=== PATIENT | female | born 1980 | race Caucasian/White ===

== ENCOUNTER 2016-11-23 09:22 | Inpatient (IN) | payer MEDICAID, OTHER ==
[2016-11-23] MEDS ORDERED: IOPAMIDOL 370 (76%) 100 ML VIAL IV ONE (09:23)
[2016-11-23] MEDS ORDERED: LORAZEPAM 2 MG/ML 1ML SDV ONE (09:57)
[2016-11-23 09:59] LABS: ABSOLUTE NEUTROPHIL COUNT 6.9 K/mm3 (1.8-7.7); BASO % 0.3 % (0.2-1.0); HEMOGLOBIN 12.3 gm/l (12.0-16.0); IMM NEUT # 0.1 K/mm3 (0-0.2); IMM NEUT% 0.8 % (0-1); LYMPH # 0.7 (1.0-4.8); LYMPH % 8.2 % (15-45); MEAN CORPUSCULAR HEMOGLOBIN 30.9 pg (27.0-31.0); MEAN CORPUSCULAR HGB CONC 33.2 g/dl (33.0-37.0); MEAN PLATELET VOLUME 10.7 fl (7.4-10.4); MONO # 0.3 (0.0-0.8); MONO % 3.9 % (4-12); NEUT % 86.8 % (43-75); PLATELET COUNT 77 K/mm3 (130-400)
[2016-11-23 10:12] LABS: ALB/GLOB RATIO 0.7 (>1.0); ALBUMIN 3.1 gm/dL (3.5-5.7); CALCIUM 8.7 mg/dL (8.6-10.3)
--- NOTE | 2016-11-23 11:47 | CT ---
Exam Type: ABD/PELVIS W/ CON Date and Time: 11/23/2016 10:04 AM Clinical information: Vomiting, abdominal pain, constipation and abdominal distention. Comparison: None Technique: Contiguous axial 4 mm images were obtained from the lung bases through the pelvis after the uneventful IV administration of 100 cc of Isovue-[id number]. Sagittal and coronal reformations with high resolution lung algorithm images were also obtained at this time. CT DI: 5.0 DLP 235.2 FINDINGS: Lung base : Patchy airspace disease is present at the left base compatible with probable pneumonia. There is a probable subpleural nodule on image 10 along the central left base measuring approximately 4 mm. Visualized heart:There is no pericardial effusion. LIVER: Hepatomegaly. Liver measures 22.8 cm on coronal image 26. There is a heterogeneous appearance to the enhancement of the liver with diffuse fatty infiltration and focal sparing along the gallbladder fossa. There may be some mild macro lobulations along the anterior margin. BILE DUCTS: normal caliber. GALLBLADDER: Multiple stones are identified. PANCREAS: within normal limits. SPLEEN: Spleen is enlarged measuring 15.3 cm on coronal image 38. ADRENALS: within normal limits. KIDNEYS: within normal limits. Stomach and small BOWEL: Normal caliber. Large bowel: Air and stool are noted within the large bowel. Appendix is normal. LYMPH NODES: No enlarged mesenteric lymph nodes. PERITONEUM: no ascites or free air, no fluid collection. VESSELS: within normal limits RETROPERITONEUM: within normal limits. ABDOMINAL WALL: Fat-containing umbilical hernia. Bladder: Normal. Uterus and adnexa: Normal. BONES: within normal limits. IMPRESSION: Hepatosplenomegaly with diffuse fatty infiltration to the liver. Focal sparing is present in the gallbladder fossa. No definite lesion is identified. Cholelithiasis. Fat-containing umbilical hernia. Airspace disease at the left base worrisome for pneumonia. Other incidental findings as above. Report was uploaded to the electronic medical record at approximately 1143 hours on 11/23/2016.
[2016-11-23 12:44] LABS: INR 1.24; PROTHROMBIN TIME 13.1 SECONDS (9.3-11.4)
[2016-11-23] MEDS ORDERED: LORAZEPAM 2 MG/ML 1ML SDV IM PRN (12:58)
[2016-11-23] MEDS ORDERED: ONDANSETRON 4 MG/2ML 2 ML VIAL IV PRN (13:00)
[2016-11-23 13:15] VITALS: BMI 22.1
[2016-11-23] MEDS ORDERED: BISACODYL 5 MG TABLET.EC PO PRN (13:16)
[2016-11-23] MEDS ORDERED: MAGNESIUM HYDROXIDE 30 ML UDCUP PO PRN (13:16)
[2016-11-23] MEDS ORDERED: SODIUM CHLORIDE 0.9% 100 ML IV PRN (13:16)
[2016-11-23] MEDS ORDERED: MENTHOL/CETYLPYRD 1 EACH LOZENGE PO PRN (13:16)
[2016-11-23] MEDS ORDERED: BISACODYL 10 MG SUP PR PRN (13:16)
[2016-11-23] MEDS ORDERED: BLISTEX LIPSTICK 1 EACH TP PRN (13:16)
[2016-11-23] MEDS ORDERED: PUMP TUBING ONE (13:41)
[2016-11-23] MEDS: LORAZEPAM 2 MG/ML 1ML SDV IV PRN ×2 (13:49→20:21)
[2016-11-23] MEDS: MULTIVITAMINS 10 ML, FOLIC ACID 2 MG, MAGNESIUM SULFATE 1 G/2 ML 2 G, THIAMINE HCL 100 ... IV SCH ×5 (14:08)
[2016-11-23] MEDS: LACTULOSE 20 G/30 ML UDCUP PO SCH (14:20)
[2016-11-23] MEDS: PANTOPRAZOLE 40 MG TABLET DR PO SCH (14:21)
[2016-11-23] MEDS ORDERED: PROMETHAZINE HCL 25 MG TABLET PO PRN (15:43)
[2016-11-23] MEDS ORDERED: PROMETHAZINE IV PER PHARMACY 1 EACH in SODIUM CHLORIDE 0.9% 50 ML IV PRN (15:43)
[2016-11-23] MEDS ORDERED: PROMETHAZINE HCL 25 MG SUP PR PRN (15:43)
[2016-11-23] MEDS ORDERED: ALBUTEROL NEB 2.5 MG/3 ML VIAL.NEB NEB PRN (15:49)
[2016-11-23] MEDS ORDERED: POTASSIUM CHLORIDE 40 MEQ in SODIUM CHLORIDE 0.9% 500 ML IV ONE (15:51)
[2016-11-23] MEDS: LEVOFLOXACIN 750 MG TABLET PO SCH (16:19)
[2016-11-23] MEDS ORDERED: MAGNESIUM SULFATE 2 G/50 ML 2 G in Premix (Water) 50 ml 1 EACH IV ONE ×2 (16:40→20:45)
--- NOTE | 2016-11-23 18:18 | HP ---
BABAK TAMAYO [id number] DATE OF ADMISSION: November 23, 2016 CHIEF COMPLAINT: Shortness of breath. HISTORY OF PRESENT ILLNESS: The patient is a 36-year-old female with a past medical history significant for chronic alcohol abuse who presents to the [facility] Emergency Department with complaints of shortness of breath symptoms which have been going on for several months getting progressively worse. She repots that in the last four to five days she has had nausea with vomiting. She denies any diarrheal symptoms and in fact has had constipation with no bowel movement in three days. She has had some chest discomfort with a cough for the last three to four days. She has noticed abdominal swelling progressive over the last several months. She has also noticed some numbness over the abdominal wall. In the emergency department, she was found to have evidence of acute alcoholic hepatitis with hyperbilirubinemia and lobar pneumonia. She was referred to the hospitalist service. She also had some tachycardia in the emergency department with tremors and was felt to be in acute alcohol withdrawal. REVIEW OF SYSTEMS: Is negative for any documented fevers or chills. She has had no recent upper respiratory symptoms. She has had coughing and wheezing for the past week. She has had some substernal chest pain with the cough. The cough is productive of discolored sputum. She has had no palpitations, orthopnea, or lower extremity edema. She has had nausea and vomiting intermittently for the last four days. No hematemesis. She has had constipation as mentioned above. She has had some diffuse abdominal discomfort for several days as well along with increasing abdominal distention for months. She denies any headaches, fainting, blackouts or seizures. She has had no urinary complaints. Review of systems is otherwise negative. PAST MEDICAL HISTORY: Is significant for: 1. A hospitalization in April of 2016 for shortness of breath and swelling. She was transfused four units of packed red blood cells during that stay when she was admitted with a hemoglobin of 5.1. She did undergo an upper endoscopy. No source of blood loss was identified. 2. She has had no chronic medical problems. 3. She did have an echocardiogram during her last stay which was normal. 4. She has had a history of alcohol abuse. PAST SURGICAL HISTORY: Significant for: 1. Oral surgery. 2. section times five. 3. Upper endoscopy in April,. ALLERGIES: SHE REPORTS SHE HAS ALLERGIES TO: 1. NAPROXEN. 2. SUDAFED. CURRENT MEDICATIONS: None. FAMILY HISTORY: Significant for a father with alcoholism and a paternal grandfather with alcoholic liver disease. SOCIAL HISTORY: She is . She has five living children. She is homeless in [place]. She smokes a half a pack of cigarettes per day and has been a smoker for about 15 pack-years. She has had a history of heavy daily alcohol use between 2008 and 2012 and cut back between 2012 and 2013 and then has been drinking an average of a pint of vodka two to three times per week over the past year. Her last drink was yesterday. She denies history of alcohol withdrawal symptoms in the past. She has contact with her mother periodically but does not want to discuss her medical issues with her mother. Her kids, I believe, are in foster care or living with the father of the baby. PHYSICAL EXAMINATION: VITAL SIGNS: Show a temperature of 99.0, pulse 111, blood pressure 120/82, respirations 18, oxygen saturation 95% on room air. Body mass index is 22. Weight is 53 kilograms. GENERAL: This is a well-developed, well-nourished female in no acute distress. HEENT: Shows poor dentition, moist pink oral mucosa. NECK: Is supple without lymphadenopathy or thyromegaly. CHEST: Lungs are significant for scattered coarse rhonchi and expiratory wheezes. CARDIOVASCULAR: Exam reveals a regular tachycardia without a murmur. ABDOMEN: Reveals marked hepato- and splenomegaly. No clear cut ascites is present. She does have some mild discomfort over her liver and spleen. No guarding or rebound. Positive bowel sounds are present. PELVIC: Exam is deferred. RECTAL: Exam is deferred. EXTREMITIES: Show no peripheral edema. NEUROLOGIC: Shows generalized tremor. She is alert and oriented times three. LABORATORY STUDIES: Show a white count of 8.0, hemoglobin of 12.3, mean corpuscular volume of 93, platelet count of 77,000. INR is 1.24. Lactate is 5.8. Chemistry profile shows sodium 136, potassium 3.0, carbon dioxide 21, BUN 6, creatinine 0.6, glucose 121, magnesium 1.1, total bilirubin 10.9, AST 269, ALT 48, alkaline phosphatase 467, ammonia level 82, lipase 17, albumin 3.1, globulin 4.2. Alcohol level is undetectable. DIAGNOSTIC IMAGING STUDIES: A CT scan of the abdomen and pelvis shows patchy airspace disease in the left lung base consistent with pneumonia, also hepatosplenomegaly with diffuse fatty infiltration of the liver. There is also cholelithiasis without evidence of cholecystitis. Fat containing umbilical hernia is present as well. ASSESSMENT: 1. Patient has acute alcohol withdrawal. 2. She has evidence of a bacterial pneumonia without clinical evidence of sepsis. 3. She does have a lactic acidosis which is likely due to advanced liver disease. 4. She has evidence of acute alcoholic hepatitis. Her MELD score is 18. Her Maddrey's Discriminant Function Score is 24. Her [place] alcoholic hepatitis score is 6. These numbers indicate a mortality rate up to 20% in a 90-day period. However, she is not a candidate for steroids for treatment of her alcoholic hepatitis. 5. She has shortness of breath symptoms likely due to her bacterial pneumonia and restrictive lung deficits from her hepato- and splenomegaly. 6. She has nausea and vomiting likely due to alcoholic gastritis. 7. She has ongoing alcoholism and is currently in alcohol withdrawal as mentioned above. 8. She has hypokalemia likely due to gastrointestinal losses. 9. She has constipation likely due to dehydration. PLAN: 1. She is admitted to the medical/surgical unit. 2. She is going to be treated with oral Levaquin for her pneumonia. 3. She will be given a banana bag. 4. She will be given Ativan for alcohol withdrawal following [facility] protocol. 5. She will be given potassium replacement and magnesium replacement for her hypokalemia and hypomagnesemia. 6. She will be given promethazine for her nausea. 7. I anticipate she will be here for three to four days as she goes through the alcohol withdrawal. 8. We will get nephrology social worker to assist in directing the patient to alcohol treatment programs and to arrange for followup of her liver disease. 9. We will get a hepatitis profile as well. 10. Venous thromboembolism risk is moderate. Mechanical measures will be used for prophylaxis. 11. Further treatment and recommendations will depend on her hospital course.
--- NOTE | 2016-11-23 18:36 | RAD ---
Exam: Two-view chest COMPARISON: 04/29/2016, 09/16/[address] abdomen 11/23/2016 INDICATION: Dyspnea. Left lower lobe airspace disease present on earlier CT abdomen. Findings: PA and lateral views of the chest were obtained. Cardiac silhouette is within normal limits. Lungs are normally inflated. There is no focal airspace disease or pleural effusion; specifically, the patchy groundglass opacities within the left lower lobe described on earlier CT chest are not visualized on plain radiograph. There is no pleural effusion. A sclerotic lesion within the left humeral head is noted and unchanged since 2012, compatible with a benign bone island. IMPRESSION: The left lower lobe airspace disease seen on earlier CT abdomen is not seen by plain radiograph.
[2016-11-23] MEDS: DOCUSATE SODIUM 100 MG CAPSULE PO SCH (20:28)
[2016-11-23] MEDS ORDERED: SODIUM CHLORIDE 0.9% FLUSH 10 ML ONE ×2 (20:41→22:47)
[2016-11-23] MEDS ORDERED: IV START KIT ONE ×2 (20:41→22:47)
[2016-11-23] MEDS ORDERED: NICOTINE POLACRILEX 2 MG LOZENGE PO PRN (22:44)
[2016-11-24 06:11] LABS: ABSOLUTE NEUTROPHIL COUNT 2.5 K/mm3 (1.8-7.7); BASO % 0.5 % (0.2-1.0); EOS % 0.8 % (0.9-2.9); HEMATOCRIT 28.6 % (37.0-47.0); HEMOGLOBIN 9.4 gm/l (12.0-16.0); IMM NEUT # 0.1 K/mm3 (0-0.2); IMM NEUT% 1.9 % (0-1); LYMPH # 0.9 (1.0-4.8); LYMPH % 23.5 % (15-45); MEAN CELL VOLUME 95.3 fl (81.0-99.0); MEAN CORPUSCULAR HEMOGLOBIN 31.3 pg (27.0-31.0); MEAN CORPUSCULAR HGB CONC 32.9 g/dl (33.0-37.0); MEAN PLATELET VOLUME 11.4 fl (7.4-10.4); MONO # 0.2 (0.0-0.8); MONO % 5.6 % (4-12); NEUT % 67.7 % (43-75); PLATELET COUNT 44 K/mm3 (130-400)
[2016-11-24 06:29] LABS: ALB/GLOB RATIO 0.8 (>1.0); ALBUMIN 2.5 gm/dL (3.5-5.7)
[2016-11-24 07:25] LABS: PLATELET ESTIMATE NO PLT CLUMPS SEEN (NORMAL)
[2016-11-24] MEDS ORDERED: POTASSIUM CHLORIDE 40 MEQ in SODIUM CHLORIDE 0.9% 500 ML IV ONE (09:00)
[2016-11-24] MEDS: PANTOPRAZOLE 40 MG TABLET DR PO SCH (09:33)
[2016-11-24] MEDS: DOCUSATE SODIUM 100 MG CAPSULE PO SCH (09:33)
[2016-11-24] MEDS: LACTULOSE 20 G/30 ML UDCUP PO SCH (09:33)
[2016-11-24] MEDS: LORAZEPAM 2 MG/ML 1ML SDV IV PRN ×2 (09:47→14:17)
[2016-11-24] MEDS ORDERED: POTASSIUM CHLORIDE 20 MEQ TAB.PRT.SR PO SCH (13:00)
[2016-11-24] MEDS ORDERED: PROMETHAZINE HCL 12.5 MG in SODIUM CHLORIDE 0.9% 50 ML IV PRN (13:04)
--- NOTE | 2016-11-24 13:10 | PDOC43 ---
- Subjective Chief Complaint: shortness of breath Subjective: Reports Shortness of Breath (improving), Reports Abdominal Pain ( stable), Reports Other (threatening to leave against medical advice), Denies Fever - Objective Vital Signs Temperature 99.6 F 11/24/16 10:00 Pulse Rate 99 11/24/16 10:00 Respiratory Rate 20 11/24/16 10:00 Blood Pressure 110/63 11/24/16 10:00 O2 Saturation by Pulse Oximetry 93 11/24/16 10:00 Oxygen Delivery Method Room Air Oxygen Flow Rate 0 Intake and Output 11/23/16 11/24/16 11/25/16 06:59 06:59 06:59 Intake Total 3098 Output Total 151 Balance 2947 General: Alert, Oriented x3, Mild Distress HEENT: Mucous membr. moist/pink Lungs: Diminished at Bases (with ronchi) Cardiovascular: Other (tachycardia improving) Abdomen: Soft, Mild Distention, Other (marked hepatosplenomegaly without ascites ), No Tenderness Extremities: No Edema Laboratory 11/24/16 05:30 11/24/16 05:30 11/24/16 05:30 RBC 3.00 L MCH 31.3 H MCHC 32.9 L RDW 18.0 H BUN 5 L Estimated GFR 140 H Calcium 8.0 L Total Bilirubin 11.0 H AST 181 H Alkaline Phosphatase 310 H Total Protein 5.7 L Albumin 2.5 L Albumin/Globulin Ratio 0.8 L % Immature Granulocyt 1.9 H Current Medications: Current meds reviewed in EMR. - Problems: Assessment/Plan (1) Alcoholic hepatitis without ascites Status: AcuteAssessment/Plan: does not meet criteria for steroids by Glascow score nor Maddrey's disc. function, based on MELD has mortality rate up to 20% in next 90 days - encouraging abstinence and looking in to outpatient resources, viral serologies pending (2) Alcohol dependence with withdrawal Qualifiers: Complication of substance-induced condition: with unspecified complication Qualifier Code: (F10.239) Alcohol dependence with withdrawal, unspecified Status: AcuteAssessment/Plan: associated with tremors and tachycardia with CIWA scores up to 14 receiving Ativan PRN - will monitor (3) Bacterial pneumonia Status: AcuteAssessment/Plan: involving LLL without hypoxia - cont oral Levaquin (4) Nausea & vomiting Qualifiers: Vomiting type: unspecified Status: AcuteAssessment/Plan: multifactorial - improving (5) Constipation Qualifiers: Constipation type: unspecified constipation type Qualifier Code: ( K59.00) Constipation, unspecified Status: AcuteAssessment/Plan: will add senna (6) Hypokalemia Status: AcuteAssessment/Plan: due to GI losses - cont replacement (7) Anemia Qualifiers: Anemia type: unspecified type Qualifier Code: (D64.9) Anemia, unspecified Status: AcuteAssessment/Plan: partly dilutional - rule out nutritional deficiencies VTE Prophylaxis: mech measures Disposition: possible discharge in am
[2016-11-24] MEDS ORDERED: SENNOSIDES 8.6 MG TABLET PO SCH (13:15)
[2016-11-24] MEDS: MULTIVITAMINS 10 ML, FOLIC ACID 2 MG, MAGNESIUM SULFATE 1 G/2 ML 2 G, THIAMINE HCL 100 ... IV SCH ×5 (14:48)
[2016-11-24 15:29] VITALS: BP 105/52
[2016-11-24] MEDS: LEVOFLOXACIN 750 MG TABLET PO SCH (16:22)
[2016-11-24 22:19] LABS: FOLIC ACID > 23.7 ng/mL (>5.9)
[2016-11-24 22:25] LABS: FERRITIN 253.7 ng/mL (11.0-306.8)
[2016-11-24 23:44] LABS: HEP B CORE AB, IGM Non React (Non React); HEPATITIS B SURFACE AG Non React (Non React); HEPATITIS C ANTIBODY Non React (Non React)
== END 2016-11-24 16:47 | disposition home or self-care (01) | DRG 432 ==
LOC: ED 09:22 → INTOOBSV 12:36 → MS 12:36 → OBSVTOIN 12:36 → MS 11-24 06:19
PROVIDERS: ADMIT Family Medicine; ATTEND Family Medicine
DX: K70.11 Alcoholic hepatitis with ascites (principal); J15.9 Unspecified bacterial pneumonia; F10.230 Alcohol dependence with withdrawal, uncomplicated; F10.20 Alcohol dependence, uncomplicated; K59.00 Constipation, unspecified; E87.6 Hypokalemia; D64.9 Anemia, unspecified